=== PATIENT | female | born 1985 | race African-American/Black ===

== ENCOUNTER 2017-02-14 20:40 | Emergency (ER) | payer OTHER ==
[2017-02-14] MEDS ORDERED: SODIUM CHLORIDE 0.9% 500 ML INFUS.BAG IV ONE (21:39)
--- NOTE | 2017-02-14 21:42 | PDOC ---
History of Present Illness - General Chief Complaint: Pain Stated Complaint: ABD PAIN Time Seen by Provider: 02/14/17 21:23 - History of Present Illness Initial Comments: 02/14/17 21:41 CHIEF COMPLAINT: abdominal pain HISTORY OF PRESENT ILLNESS: 31 yo F with no significant PMH presents to ED with RLQ abdominal pain since 11 am today. Patient reports she was seen at an urgent care center and sent to the ER to r/o appendicitis. No recent travel or sick contacts. PAST MEDICAL HISTORY: Denies past medical history FAMILY HISTORY: Denies SOCIAL HISTORY: Denies tobacco, alcohol, illicit drug use. SURGICAL HISTORY: Denies ALLERGIES: No known drug allergies REVIEW OF SYSTEMS General/Constitutional: Denies fever or chills. Denies weakness, weight change. HEENT: Denies change in vision. Denies ear pain or discharge. Denies sore throat. Cardiovascular: Denies chest pain or shortness of breath. Respiratory: Denies cough, wheezing, or hemoptysis. Gastrointestinal: RLQ pain. Genitourinary: Denies dysuria, frequency, or change in urination. Musculoskeletal: Denies joint or muscle swelling or pain. Denies neck or back pain. Skin and breasts: Denies rash or easy bruising. PHYSICAL EXAM General Appearance: Well-appearing, appropriately dressed. No apparent distress , no intoxication. HEENT: EOMI, PERRLA. Respiratory/Chest: Lungs CTAB. Cardiovascular: RRR. S1, S2. Gastrointestinal/Abdominal: Marked tenderness to lower abdomen b/l with guarding. Abdomen soft, non-distended. No organomegaly, pulsatile mass, guarding, hernia, hepatomegaly, splenomegaly. Musculoskeletal/Extremities: Normal inspection. FROM of all extremities, normal capillary refill. Pelvis Stable. No CVA tenderness. No tenderness to extremities, pedal edema, swelling, erythema or deformity. Integumentary: Appropriate color, dry, warm. 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 Fully oriented, alert. Appropriate mood/affect. Motor strength 5/5. No appreciable EOM palsy, facial droop or sensory deficit. 02/15/17 02:09 Past History - Past Medical History Allergies/Adverse Reactions: Allergies Allergy/AdvReac Type Severity Reaction Status Date / Time No Known Allergies Allergy Verified 02/14/17 22:36 Home Medications: Ambulatory Orders Ibuprofen [Motrin -] 600 mg PO TID PRN #21 tablet 02/15/17 Nitrofurantoin Monohyd/M-Cryst [Macrobid -] 100 mg PO BID #14 capsule 02/17/17 - Psycho/Social/Smoking Cessation Hx Anxiety: No Suicidal Ideation: No Smoking History: Never smoked Have you smoked in the past 12 months: No Hx Alcohol Use: No Drug/Substance Use Hx: No Substance Use Type: None *Physical Exam - Vital Signs Last Vital Signs Temp Pulse Resp BP Pulse Ox 100.2 F H 86 18 127/71 100 02/14/17 20:59 02/14/17 20:59 02/14/17 20:59 02/14/17 20:59 02/14/17 20:59 ED Treatment Course - LABORATORY CBC & Chemistry Diagram: 02/14/17 21:57 02/14/17 21:58 Medical Decision Making - Medical Decision Making 02/15/17 02:09 31 yo F with no significant PMH presents to ED with lower abdominal pain since 11 am today. -CBC, CMP, lipase, serum preg -pelvic u/s r/o appy Ultrasound results: FINDINGS: Transabdominal pelvic ultrasound:Uterus is anteverted and measures 8.7centimeters in length.The endometrium is 3millimeters in thickness which is normal. T Endovaginal pelvic ultrasound: here are no fibroids. The right ovary measures 4.2centimeters in length, appears normal and demonstrates normal flow. Left ovary measures 2.9centimeters in length contains a 1.4 cm slightly complex cyst and there is a 2.1 x 1.9 cm echogenic exophytic hypervascular structure, possibly a mass. demonstrates normal flow. There is no significant free fluid. Pelvic duplex: There is normal arterial and venous flow in both ovaries. Right lower quadrant ultrasound: The appendix is not identified. No free fluid. IMPRESSION: Nonvisualization of the appendix and therefore appendicitis cannot be excluded. Consider followup with CT. 2.1 cm exophytic echogenic right ovarian mass of uncertain etiology requires further evaluation. Read by: Aguila Merrill MD -A&P CT FINDINGS: Lung bases are clear. The visualized cardiac chambers are normal size and configuration. Normal liver, gallbladder, pancreas, spleen, adrenal glands and kidneys. The stomach and abdominal small and large bowel are normal. There is no aortic aneurysm. There is no significant retroperitoneal lymphadenopathy. The pelvic small and large bowel are normal. The appendix is normal. A 1.4 cm involuting left ovarian cyst is noted. There is questionable mild bilateral hydrosalpinx, not clearly visible on ultrasound. No definite right ovarian apparent mass The uterus and adnexal structures are normal. Urinary bladder is unremarkable. There is no pelvic free fluid. No discrete pelvic lymphadenopathy is identified. IMPRESSION: Normal appendix. Questionable mild bilateral hydrosalpinx. Small involuting left ovarian cyst. Suggest 6 week followup sonography. Read by: Aguila Merrill MD Will treat for PID given b/l lower abd pain vs b/l adnexal tenderness. 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 *DC/Admit/Observation/Transfer Diagnosis at time of Disposition: PID (acute pelvic inflammatory disease) - Discharge Dispostion Disposition: HOME Admit: No - Prescriptions Prescriptions: Ibuprofen [Motrin -] 600 mg PO TID PRN #21 tablet PRN Reason: Pain - Referrals Referrals: Haydee Weiner MD [Primary Care Provider] - - Post Discharge Activity Work/School Note: Back to Work
[2017-02-14 22:02] LABS: BASOPHIL 0.3 % (0-2.0); EOSINOPHIL 0.1 % (0-4.5); MCH 28.9 pg (25.7-33.7); MCHC 32.4 g/dl (32.0-36.0); MEAN CELL VOLUME 89.2 fl (80-96); MEAN PLT VOLUME 8.4 fl (7.5-11.1); NEUTROPHILS 90.9 % (42.8-82.8); PLATELET COUNT 252 K/MM3 (134-434); RDW 14.7 % (11.6-15.6); WHITE BLOOD COUNT 17.6 K/mm3 (4.0-10.0)
--- NOTE | 2017-02-14 22:14 | PDOC ---
*Physical Exam - Vital Signs Last Vital Signs Temp Pulse Resp BP Pulse Ox 100.2 F H 86 18 127/71 100 02/14/17 20:59 02/14/17 20:59 02/14/17 20:59 02/14/17 20:59 02/14/17 20:59 ED Treatment Course - LABORATORY CBC & Chemistry Diagram: 02/14/17 21:57 02/14/17 21:58 - ADDITIONAL ORDERS Additional order review: 02/14/17 21:57 RBC 4.45 MCV 89.2 MCHC 32.4 RDW 14.7 MPV 8.4 Neutrophils % 90.9 H Lymphocytes % 6.0 L D Monocytes % 2.7 L Eosinophils % 0.1 D Basophils % 0.3 - Medications Given in the ED: ED Medications Discontinued Medications Generic Name Dose Route Start Last Admin Trade Name Freq PRN Reason Stop Dose Admin Sodium Chloride 1,000 ml 02/14/17 21:39 02/14/17 21:41 Normal Saline - IV 02/14/17 21:40 1,000 ml ONCE ONE Administration Medical Decision Making - Medical Decision Making 02/14/17 22:13 agree with care from [facility] Srivastava *DC/Admit/Observation/Transfer Diagnosis at time of Disposition: PID (acute pelvic inflammatory disease) - Discharge Dispostion Disposition: HOME - Prescriptions Prescriptions: Ibuprofen [Motrin -] 600 mg PO TID PRN #21 tablet PRN Reason: Pain - Referrals Referrals: Haydee Weiner MD [Primary Care Provider] - - Post Discharge Activity Work/School Note: Back to Work
[2017-02-14 22:24] LABS: ALBUMIN 4.1 g/dl (3.4-5.0); ANION GAP 9 (8-16); CALCIUM 9.2 mg/dL (8.5-10.1); CO2 27 mmol/L (21-32); CREATININE 0.9 mg/dL (0.55-1.02); GLUCOSE,RANDOM 100 mg/dL (74-106); SGOT/AST 18 U/L (15-37); SGPT/ALT 25 U/L (12-78)
[2017-02-14 22:30] LABS: ALK PHOS 55 U/L (45-117); BILIRUBIN,TOTAL 0.5 mg/dL (0.2-1.0); TOT PROT 7.7 g/dl (6.4-8.2)
[2017-02-15] MEDS ORDERED: morphine CARPU-JECT 2 MG/1 ML DISP.SYRIN IVPUSH ONE (00:14)
[2017-02-15] MEDS ORDERED: morphine CARPU-JECT 2 MG/1 ML DISP.SYRIN ONE (00:33)
[2017-02-15] MEDS ORDERED: AZITHROMYCIN 250 MG TABLET (FP) PO ONE (02:00)
[2017-02-15 02:48] LABS: URINE APPEARANCE CLEAR; URINE BILIRUBIN NEGATIVE (NEGATIVE); URINE BLOOD NEGATIVE (NEGATIVE); URINE COLOR LTYELLOW; URINE GLUCOSE (UA) NEGATIVE (NEGATIVE); URINE KETONE 1+ (NEGATIVE); URINE LEUK ESTERASE 2+ (NEGATIVE); URINE NITRITE POSITIVE (NEGATIVE); URINE PROTEIN NEGATIVE (NEGATIVE)
[2017-02-15 02:51] LABS: URINE BACTERIA MODERATE /hpf (NONE SEEN); URINE MUCUS RARE; URINE RBC 2 /hpf (0-3); URINE WBC 76 /hpf (3-5)
[2017-02-15 02:54] VITALS: BP 107/61; PULSE 77; TEMP 98.3
== END 2017-02-15 02:56 | disposition home or self-care (01) ==
LOC: JER 20:40
PROC: 3E033NZ Introduction of Analgesics, Hypnotics, Sedatives into Peripheral Vein, Percutaneous Approach (ICD-10-PCS; principal; 2017-02-14)
PROC: 3E02329 Introduction of Other Anti-infective into Muscle, Percutaneous Approach (ICD-10-PCS; 2017-02-14)
DX: N73.9 Female pelvic inflammatory disease, unspecified (principal)
CPT/HCPCS: 36415; 74177-TC; 76830-TC; 76856-TC; 80053; 81003; 81015; 83690; 84703; 85025; 87086; 87186; 87491; 87591; 99283-25